=== PATIENT | male | born 1950 | race Caucasian/White ===

== ENCOUNTER 2018-03-14 16:30 | Emergency (ER) | payer OTHER ==
[~2018-03-14 16:30] MED LIST: Sodium Chloride 0.9% 1,000 ML BAG ONE
[2018-03-14] MEDS ORDERED: Acetaminophen 500 MG TAB ONE (17:38)
[2018-03-14 17:41] LABS: Band 1 % (5-11); Lymphocytes 12 % (21-51); MDiff Complete? YES; Mean Corpuscular HGB CONC 33.9 g/dL (32.0-36.0); Mean Corpuscular Hemoglobin 29.7 pg (27.0-31.0); Mean Corpuscular Volume 87.6 fL (78.0-98.0); Monocytes 5 % (0-10); Neutrophil 82 % (42-75); Platelet Count 218 thou/uL (130-400); RBC Distribution Width 12.1 % (11.5-14.5); Red Blood Cell (RBC) Count 5.06 mill/uL (4.70-6.10); White Blood Cell (WBC) Count 12.2 thou/uL (4.8-10.8)
[2018-03-14 17:45] LABS: ALT (SGPT) 22 U/L (8-55); AST (SGOT) 20 U/L (5-34); Albumin 4.6 g/dL (3.4-4.8); Alkaline Phosphatase 73 U/L (40-150); Anion Gap 15 mmol/L (10-20); BUN (Urea Nitrogen) 12 mg/dL (8.4-25.7); Calc. Creatinine Clearance 0 mL/min (70-130); Calcium 9.4 mg/dL (7.8-10.44); Carbon Dioxide 22 mmol/L (23-31); Chloride 103 mmol/L (98-107); Estimated GFR-MDRD 90; Globulin 3.3 g/dL (2.4-3.5); Glucose 99 mg/dL (80-115); Protein, Total 7.9 g/dL (5.8-8.1); Sodium 136 mmol/L (136-145)
--- NOTE | 2018-03-14 18:52 | CT ---
CT SCAN OF INTERNAL AUDITORY CANALS: Date: 03/14/18 Multiple axial tomograms obtained through the internal auditory canals with thin sections obtained ax ially at 6 mm thickness. INDICATION: Right side ear pain and swelling x4 days. FINDINGS: The right external auditory canal is opacified with minimal air in the mid right external auditory ca nal. There is edema and thickening involving the pinna of the right ear and the surrounding soft tiss ues at the base of the pinna consistent with cellulitis. The opacification of the external canal may represent exudate. The middle ear cavity is opacified consistent with diffuse otitis media. There is mild mucosal thickening involving mastoid air cells as well. There is no evidence of osseous destruct ion or erosion. There is mucosal thickening involving the right maxillary sinus. The right ethmoid air cells show mil d mucosal edema. Frontal sinuses are atrophic. Sphenoid sinuses appear clear. IMPRESSION: Abnormal opacification of the right middle ear and external auditory canal consistent with diffuse ot itis media and otitis externa. Diffuse edema and inflammatory changes involving the pinna of the righ t ear and the soft tissues at the base of the pinna consistent with diffuse associated cellulitis ext ending outside the external auditory canal. No focal fluid or abscess collection identified. Recommen d ENT consultation and close follow-up. POS: [facility]
[2018-03-14] MEDS ORDERED: Ciprofloxacin Lactate/D5W 400 mg/200 ml Premix ONE (19:03)
== END 2018-03-14 20:33 | disposition home or self-care (01) ==
LOC: MADERS 16:30
DX: H60.21 Malignant otitis externa, right ear (principal); I10 Essential (primary) hypertension; F17.210 Nicotine dependence, cigarettes, uncomplicated; Z79.899 Other long term (current) drug therapy; Z79.891 Long term (current) use of opiate analgesic
CPT/HCPCS: 36415; 70480; 80053; 83605; 85025; 87040; 96361; 96365; J0744; J7050